=== PATIENT | male | born 2005 | race Caucasian/White ===

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

== ENCOUNTER 2025-03-25 07:29 | Emergency (ER) | payer MEDICAID ==
[~2025-03-25] VITALS: Ht 170.2 cm; Wt 72.0 kg
[2025-03-25 07:34] VITALS: O2SAT 99
[2025-03-25] MEDS ORDERED: IBUP-1523 MT (09:51)
[2025-03-25] MEDS ORDERED: TOPUD MT (09:51)
[2025-03-25 10:21] VITALS: BP 119/81; PULSE 69; RESP 16; TEMP 37; O2SAT 99
== END 2025-03-25 10:22 | disposition home or self-care (01) ==
LOC: ER 08:02
DX: S82.201D Unspecified fracture of shaft of right tibia, subsequent encounter for closed fracture with routine healing (principal); S82.401D Unspecified fracture of shaft of right fibula, subsequent encounter for closed fracture with routine healing; F12.90 Cannabis use, unspecified, uncomplicated; Z98.890 Other specified postprocedural states; Z79.899 Other long term (current) drug therapy; X58.XXXD Exposure to other specified factors, subsequent encounter
CPT/HCPCS: 99282